=== PATIENT | female | born 2000 | race Caucasian/White ===

== ENCOUNTER 2020-06-15 08:21 | Emergency (ER) | payer OTHER ==
[~2020-06-15] VITALS: Ht 170 cm; Wt 64.0 kg
[2020-06-15] MEDS ORDERED: BIRTH CONTROL (08:42)
--- NOTE | 2020-06-15 08:55 | ED General ---
General Chief Complaint: Oral/Throat Problems Stated Complaint: SORE THROAT;RUNNY NOSE Nursing Triage Note: PT STATES SORE THROAT SINCE LAST NIGHT, NO FEVER AT TRIAGE. Nursing Sepsis Screen: No Definite Risk Source of Information: Patient Exam Limitations: No Limitations History of Present Illness Date Seen by Provider: Jun 15, 2020 Time Seen by Provider: 08:28 Initial Comments This 20 year old young lady presents to the emergency room with complaints of sore throat and runny nose. Symptoms started last night. She denies any other symptoms including cough, fever, shortness of breath, change in taste or smell, nausea, abdominal pain, etc. 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 She denies any known exposures to COVID 19. She denies with an LMP of 2-3 weeks ago. She has pain with swallowing and tenderness on the right side of the neck. She admits to recent oral sex with a new partner. Allergies and Home Medications Allergies Coded Allergies: Penicillins (Verified Allergy, Severe, 06/15/20) Home Medications Azithromycin 250 Mg Tablet, 250 MG PO UD TAKE 2 TABLETS ON DAY ONE THEN TAKE 1 TABLET DAILY FOR FOUR MORE DAYS Prescribed by: MARCOS BRAR on 06/15/20 0938 Patient Home Medication List Home Medication List Reviewed: Yes Review of Systems Review of Systems Constitutional: no symptoms reported EENTM: see HPI Respiratory: no symptoms reported Cardiovascular: no symptoms reported Gastrointestinal: no symptoms reported Genitourinary: no symptoms reported : No Musculoskeletal: no symptoms reported Skin: no symptoms reported Psychiatric/Neurological: No Symptoms Reported Hematologic/Lymphatic: No Symptoms Reported Immunological/Allergic: no symptoms reported Past Vubelfi-Wkbtjj-Gspfsy Hx Past Med/Social Hx: Reviewed Nursing Past Med/Soc Hx Patient Social History Alcohol Use: Occasionally Uses Alcohol Beverage of Choice: Beer Recreational Drug Use: No Smoking Status: Current Someday Smoker Type Used: Electronic/Vapor Recent Foreign Travel: No Contact w/Someone Who Travel: No Recent Infectious Disease Expo: No Recent Hopitalizations: No Physical Abuse: No Sexual Abuse: No Mistreated: No Fear: No Seasonal Allergies Seasonal Allergies: Yes Past Medical History Surgeries: Yes (YES-NOT SURE BUT WHEN SHE WAS A BABY) Respiratory: No Cardiac: No Neurological: No : No Last Menstrual Period: May 30, 2020 Sexually Transmitted Disease: No Genitourinary: No Gastrointestinal: No Musculoskeletal: No Endocrine: No HEENT: No Cancer: No Psychosocial: No Integumentary: No Physical Exam Vital Signs Vital Signs - First Documented 06/15/20 08:37 Temp 36.9 Pulse 102 Resp 20 B/P (MAP) 141/93 (109) O2 Delivery Room Air Capillary Refill : Less Than 3 Seconds Height, Weight, BMI Height: '" Weight: lbs. oz. kg; 22.00 BMI Method: General Appearance: No Apparent Distress, WD/WN HEENT: PERRL/EOMI, TMs Normal, Other (tonsillar erythema bilaterally with a few white patches. 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 Skin: Normal Color, Warm/Dry Progress/Results/Core Measures Suspected Sepsis Recent Fever Within 48 Hours: No Infection Criteria Present: None New/Unexplained Altered Menta: No Sepsis Screen: No Definite Risk SIRS Temperature: Pulse: 102 Respiratory Rate: 20 Blood Pressure 141 /93 Mean: 109 Results/Orders Lab Results Laboratory Tests Test 06/15/20 08:35 06/15/20 09:05 Range/Units Group A Streptococcus Screen NEGATIVE NEGATIVE My Orders Orders - MARCOS HERBERT MD Rapid Strep A Screen (06/15/20 08:28) Gentamicin (Adult) Injection (Garamycin (06/15/20 09:15) Coronavirus Sars-Cov-2 So 2018 (06/15/20 09:10) Neisseria Gonorrhea Swab (06/15/20 09:10) Chlamydia Trachomatis Swab (06/15/20 09:10) Vital Signs/I&O 06/15/20 08:37 Temp 36.9 Pulse 102 Resp 20 B/P (MAP) 141/93 (109) O2 Delivery Room Air Capillary Refill : Less Than 3 Seconds Blood Pressure Mean: 109 Progress Note : Time: 09:31 Progress Note Rapid strep test was negative. Given the appearance of her pharynx I will still empirically treat for possible strep pharyngitis with azithromycin due to the penicillin allergy. Given the recent new oral sex contact without barrier protection we are also swabbing her throat for gonorrhea and chlamydia. She will be empirically treated with gentamicin 240 mg IM, again due to penicillin allergy. The azithromycin prescribed for the possible strep throat should also cover for chlamydia. I reviewed sexual risk reduction practices with the patient. Due to recent cases of COVID-19 in the [employer] student body, she is also being swabbed for COVID-19. Patient verbally consents to me sending a copy of this note to [employer] [facility] so she can follow-up more easily. Departure Impression Primary Impression: Pharyngitis Qualified Codes: J02.9 - Acute pharyngitis, unspecified Disposition: HOME, SELF-CARE Condition: Improved Departure-Patient Inst. Decision time for Depature: 09:00 Patient Instructions: Coronavirus Disease 2019 (COVID-19) Overview, Screening for Sexually Transmitted Infections, Sore Throat, Adult (DC) Add. Discharge Instructions: Start your antibiotics immediately and complete the entire course as prescribed. Before taking your final dose of antibiotics sterilize or replace your toothbrush and any other oral instruments to prevent reinfection. You must home quarantine until the results of your COVID-19 testing are known. Results usually are available within 48 hours. If your COVID-19 test is positive, you must continue quarantine for 14 days total. If your COVID-19 test is negative, it is recommended that you home isolate until your symptoms have been gone for 3 days (72 hours). Return to care or follow up by phone at [employer] [facility] or the ER if you are having worsening symptoms or are not improving as expected with the antibiotics. You should also follow-up on your STI screening results with a primary care provider or Student [facility]. These results typically take about one week to return. Always use barrier protection such as a condom with sexual contacts even if the contact is limited to oral sex. All discharge instructions reviewed with patient and/or family. Voiced understanding. Scripts Azithromycin (Azithromycin) 250 Mg Tablet 250 MG PO UD, #6 TAB TAKE 2 TABLETS ON DAY ONE THEN TAKE 1 TABLET DAILY FOR FOUR MORE DAYS Prov: MARCOS HERBERT MD 06/15/20 Work/School Note: School/Childcare Release Date Seen in the Emergency Department: Jun 15, 2020 Return to School: Jun 21, 2020 Other Restrictions Listed Below: If COVID19 negative, mat return when free of symptoms for 72 hours. Restrictions: If COVID19 positive, quarantine for 14 days or follow Health Dept orders. Copy Copies To 1: TERESA CHILDS MD, JOSHUA T MD Jun 15, 2020 08:55
[2020-06-15] MEDS ORDERED: GENTAMICIN 40 MG/ML 2 ML INJ SDV IM ONE (09:15)
[2020-06-15] MEDS ORDERED: AZIT250T12 PO (09:38)
[2020-06-15 10:12] VITALS: BP 118/77
== END 2020-06-15 10:12 | disposition home or self-care (01) ==
LOC: ER 08:25
DX: J02.9 Acute pharyngitis, unspecified (principal); F17.290 Nicotine dependence, other tobacco product, uncomplicated; Z20.828 Contact with and (suspected) exposure to other viral communicable diseases; Z88.0 Allergy status to penicillin
CPT/HCPCS: 87430; 87491; 87591; U0002; 36415; 87635; 99285